=== PATIENT | female | born 1960 | race Caucasian/White ===

== ENCOUNTER 2018-03-24 07:41 | Day surgery (SDC) | payer BC ==
[~2018-03-24] VITALS: Ht 175.3 cm; Wt 105.9 kg
[2018-03-24] MEDS ORDERED: ONDANSETRON ODT 4 MG PO ONE (08:30)
[2018-03-24 08:40] LABS: ALANINE AMINOTRANSFERASE 130 U/L (12-78); ALBUMIN 3.4 g/dL (3.4-5.0); ANION GAP 7 mmol/L (5-15); CALCIUM 9.1 mg/dL (8.5-10.1); CHLORIDE 107 mmol/L (98-107)
[2018-03-24 08:43] LABS: ALKALINE PHOSPHATASE 124 U/L (45-117); BILIRUBIN,TOTAL 0.7 mg/dL (0.2-1.0); CREATININE 0.82 mg/dL (0.55-1.02); TOTAL PROTEIN 7.5 g/dL (6.4-8.2)
[2018-03-24 08:51] LABS: BASOPHILS # (AUTO) 0.03 x10^3/uL (0-0.1); BASOPHILS % (AUTO) 0 % (0-1); EOSINOPHILS # (AUTO) 0.04 x10^3/uL (0-0.4); EOSINOPHILS % (AUTO) 0 % (1-7); LYMPHOCYTES # (AUTO) 1.74 x10^3/uL (1-3.4); LYMPHOCYTES % (AUTO) 17 % (22-44); MD NO; MEAN CORPUSCULAR HEMOGLOBIN 29.5 pg (27.0-34.8); MEAN CORPUSCULAR HGB CONC 33.9 g/dL (32.4-35.8); MEAN PLATELET VOLUME 10.9 fL (7.4-10.4); MONOCYTES # (AUTO) 0.57 x10^3/uL (0.2-0.8); MONOCYTES % (AUTO) 6 % (2-9); NEUTROPHILS # (AUTO) 8.03 x10^3/uL (1.8-6.8); NEUTROPHILS % (AUTO) 77 % (42-75); PLATELET COUNT 253 x10^3/uL (130-400); RED BLOOD COUNT 4.78 x10^6/uL (3.82-5.3); RED CELL DISTRIBUTION WIDTH 12.9 % (9.6-15.2)
[2018-03-24] MEDS ORDERED: DICYCLOMINE 10 MG/ML, 2ML IM ONE (09:00)
[2018-03-24] MEDS ORDERED: ONDANSETRON 2MG/ML, 2ML IVPush PRN ×2 (10:00→22:30)
[2018-03-24] MEDS ORDERED: MORPHINE SULFATE 4 MG/ML, 1ML IVPush PRN ×2 (10:00)
[2018-03-24] MEDS ORDERED: PIPERACILLIN/TAZO/PMX 4.5GM 100 ML IV SCH (10:00)
[2018-03-24] MEDS ORDERED: PIPERACILLIN/TAZO/PMX 4.5GM 100 ML IV ONE (11:00)
[2018-03-24] MEDS ORDERED: D5%-0.45% NACL 1,000 ML IV ONE (11:00)
[2018-03-24] MEDS ORDERED: ONDANSETRON 2MG/ML, 2ML IVPush ONE (11:00)
[2018-03-24] MEDS ORDERED: CEFOTETAN PMX 1GM/50ML 50 ML IV ONE (11:00)
[2018-03-24 11:07] VITALS: BP 114/79
[2018-03-24 13:04] VITALS: BP 128/84
[2018-03-24] MEDS ORDERED: BUPIVACAINE/PF-EPI 0.5% 1:200K ONE (16:59)
[2018-03-24] MEDS ORDERED: KETOROLAC 30 MG/1 ML ONE (17:20)
[2018-03-24] MEDS ORDERED: MIDAZOLAM 1 MG/ML, 2ML ONE (17:20)
[2018-03-24] MEDS ORDERED: FENTANYL PF 100 MCG/2ML ONE ×4 (17:20→18:57)
[2018-03-24] MEDS ORDERED: BUPIVACAINE/PF-EPI 0.5% 1:200K INFIL ONE (17:42)
[2018-03-24] MEDS ORDERED: hydrALAzine 20 MG/ML, 1ML IV PRN (18:00)
[2018-03-24] MEDS ORDERED: ONDANSETRON 2MG/ML, 2ML IV PRN (18:00)
[2018-03-24] MEDS ORDERED: HYDROmorphone 1 MG/ML, 1ML IV PRN (18:00)
[2018-03-24] MEDS ORDERED: DIPHENHYDRAMINE 50 MG/ML, 1ML IVPush PRN ×2 (18:00→22:30)
[2018-03-24] MEDS ORDERED: SCOPOLAMINE PATCH, 1.5MG PATCH.TD72 TD PRN (18:00)
[2018-03-24] MEDS ORDERED: PROMETHAZINE 25 MG/ML, 1ML IV PRN (18:00)
[2018-03-24] MEDS ORDERED: ALBUTEROL/IPRATROPIUM 2.5MG/0.5MG, 3 ML NPPB PRN (18:00)
[2018-03-24] MEDS ORDERED: MIDAZOLAM 1 MG/ML, 2ML IV PRN (18:00)
[2018-03-24] MEDS ORDERED: METOCLOPRAMIDE 5 MG/ML, 2ML IV PRN (18:00)
[2018-03-24] MEDS ORDERED: MEPERIDINE/PF 25MG/0.5ML IVPush PRN (18:00)
[2018-03-24] MEDS ORDERED: EPHEDRINE 50 MG/ML, 1ML IM PRN (18:00)
[2018-03-24] MEDS ORDERED: OXYcodone 5 MG/5 ML ORAL.SOL UDC PO PRN (18:00)
[2018-03-24] MEDS ORDERED: LABETALOL 5MG/ML, 20ML IV PRN (18:00)
[2018-03-24] MEDS ORDERED: ROCURONIUM 10MG/ML,5ML ONE (18:13)
[2018-03-24] MEDS ORDERED: SUCCINYLCHOLINE 20 MG/ML, 10ML ONE (18:13)
[2018-03-24] MEDS ORDERED: ONDANSETRON 2MG/ML, 2ML ONE (18:13)
[2018-03-24] MEDS ORDERED: CEFAZOLIN 1,000 MG ONE (18:13)
[2018-03-24] MEDS ORDERED: DEXAMETHASONE 4 MG/ML, 1ML ONE (18:13)
[2018-03-24] MEDS ORDERED: GLYCOPYRROLATE 0.2MG/1ML, 5ML ONE (18:13)
[2018-03-24] MEDS ORDERED: NEOSTIGMINE 1 MG/ML, 10ML ONE (18:13)
[2018-03-24] MEDS ORDERED: PROPOFOL 10 MG/ML, 20ML ONE (18:13)
[2018-03-24] MEDS ORDERED: OXYcodone 5 MG/5 ML ORAL.SOL UDC ONE (18:34)
[2018-03-24] MEDS: FENTANYL PF 100 MCG/2ML IV PRN ×4 (18:36→19:05)
[2018-03-24 21:28] VITALS: BP 140/80
[2018-03-24] MEDS ORDERED: OXYC1TAB7 PO (22:17)
[2018-03-24] MEDS ORDERED: OXYcodone/APAP 5/325MG TABLET PO PRN (22:30)
[2018-03-24] MEDS ORDERED: LACTATED RINGERS 1,000 ML IV SCH (22:30)
== END 2018-03-24 22:01 | disposition home or self-care (01) ==
LOC: ED 09:48 → 3NE 09:49 → UNDOADMIN 09:49 → ED 10:10 → OR 18:21 → UNDODISIN 23:43
PROVIDERS: ATTEND Emergency Medicine
DX: K80.10 Calculus of gallbladder with chronic cholecystitis without obstruction (principal)
CPT/HCPCS: 36415; 47562; 76700; 80053; 83690; 85025; 88304; J3010; J0690; J1100; J1885; J2250; J2405; J2704; J2710; J3490; J0330